=== PATIENT | female | born 1980 | race American Indian/Alaskan Native ===

== ENCOUNTER 2019-03-04 06:33 | Observation (INO) | payer OTHER ==
[2019-03-02 09:59] LABS: Basophils # (Auto) 0.1 K/mm3 (0.0-0.1); Eosinophils # (Auto) 0.2 K/mm3 (0.0-0.4); Eosinophils % (Auto) 2.4 % (0.0-4.3); Hematocrit 38.2 % (30.3-42.9); Hemoglobin 12.5 gm/dl (10.1-14.3); Lymphocytes # (Auto) 2.5 K/mm3 (1.2-5.4); Lymphocytes % (Auto) 32.6 % (13.4-35.0); Mean Corpuscular HGB Conc 33 % (30-34); Mean Corpuscular Volume 86 fl (79-97); Monocytes # (Auto) 0.6 K/mm3 (0.0-0.8); Monocytes % (Auto) 8.5 % (0.0-7.3); Red Blood Count 4.44 M/mm3 (3.65-5.03); Red Cell Distribution Width 13.7 % (13.2-15.2)
--- NOTE | 2019-03-02 10:00 | Anesthesia Consultation ---
Anesthesia Consult and Med Hx Date of service: 03/04/19 - Airway Anesthetic Teeth Evaluation: Good ROM Head & Neck: Adequate Mental/Hyoid Distance: Adequate Mallampati Class: Class II Intubation Access Assessment: Good - Pre-Operative Health Status ASA Pre-Surgery Classification: ASA2 Proposed Anesthetic Plan: General Nerve Block: TAP - Pulmonary Hx Asthma: Yes (INH (RESCUE AND PRN); LAST ATTACK>2 YRS) SOB: Yes (PRN INHALER) - Cardiovascular System Hx Coronary Artery Disease: (high cholesterol) - Central Nervous System Hx Psychiatric Problems: No - Gastrointestinal Hx Gastroesophageal Reflux Disease: Yes (Mild-dietary) - Hematic Hx Anemia: Yes (RESOLVED, TAKES DAILY IRON) - Other Systems Hx Alcohol Use: Yes (SOCIALLY) Hx Substance Use: No Hx Cancer: No
[2019-03-02 10:21] LABS: BUN/Creatinine Ratio 14; Blood Urea Nitrogen 13 mg/dL (7-17); Calcium 9.1 mg/dL (8.4-10.2); Hemolysis Index 6
--- NOTE | 2019-03-03 14:25 | History and Physical Report ---
History of Present Illness Date of examination: 03/01/19 History of present illness: Patient has been reassessed/reevaluated. H&P has been reviewed. No interval changes. This is a 39 years old female who presents with uterine fibroids. She complains of abdominal pain, abdominal pressure, pelvic pain and pelvic press ure, but denies menorrhagia and intermenstrual bleeding. Treatment tried to date includes control pills. Prior to today's visit the patient has had US of pelvis. Her myomas have been increasing in size. Patient's symptoms when present disrupts her normal daily activities Patient desires definitive treatment Vital Signs: Patient Profile: 39 Years Old Female LMP: 02/27/2019 Height: 64 inches (162.56 cm) Weight: 153 pounds BMI: 26.26 Menstrual History: LMP (date): 02/27/2019 On BCP's at conception: yes Current Method of Contraception: OCP Date of Last Pap Smear: 05/29/2017 Past History : 0 Term Births: 0 Premature Births: 0 Living Children: 0 Para: 0 Mult. Births: 0 Prev : 0 Aborta: 0 Elect. Ab: 0 Spont. Ab: 0 Ectopics: 0 COMPUTER NETWORK SPECIALIST History Operations: Cystoscopy with ureteral stents placed Hospitalizations: positive Anesthesia Complications: negative Abnormal PAP: negative Uterine Anomaly: positive fibroids Infection History HIV Risk Eval: no Personal hx. of genital herpes: yes Hx of STD: None Past Medical History: Hyperlipidemia headaches on migraine meds Kidney Stone Past Surgical History: Cystoscopy with ureteral stents placed Family History Summary: Daughter (biol.) - Has Family History of Hyperlipidemia - mother and father - Entered On: 05/16/2015 Daughter (biol.) - Has Family History of Hypertension - mother and father - Entered On: 05/16/2015 General Comments - FH: No Family History of Breast Cancer No Family History of Colon Cancer No Family History of Ovarvian Cancer mother fibroids mother fibromyalgia MGM RA No Family History of DVT/PE on OCP Family History of Hypertension both parents Family History of Coronary Heart Disease mat gf Family History of Hyperlipidemia mother Social History: Patient is single Smoking History: Patient has never smoked. Risk Factors: Smoked Tobacco Use: Never smoker Smokeless Tobacco Use: Never Passive smoke exposure: no Drug use: no HIV high-risk behavior: no Caffeine use: 0 drinks per day Alcohol use: no Exercise: yes Times per week: 3 Type of Exercise: Cardio Seatbelt use: 100 % PAP Smear History: Date of Last PAP Smear: 05/29/2017 Review of Systems General Denies fever, chills, sweats, anorexia, fatigue, weakness, malaise, weight loss and sleep disorder. Complains of pelvic pain. Denies vaginal discharge, incontinence, dysuria, hematuria, urinary frequency, amenorrhea, menorrhagia, abnormal vaginal bleeding, genital sores, decreased libido, painful periods, painful sex, urinary urgency, hot flashes, vaginal dryness, vaginal itching and vaginal odor. CV Denies chest pains, palpitations, syncope, dyspnea on exertion, orthopnea, PND and peripheral edema. Resp Denies cough, dyspnea at rest, excessive sputum, hemoptysis, wheezing and pleurisy. GI Denies nausea, vomiting, diarrhea, constipation, change in bowel habits, abdominal pain, melena, hematochezia, jaundice, gas/bloating, indigestion/heartburn, dysphagia and odynophagia. Breast Denies left breast lump, right breast lump, nipple discharge, bloody discharge from nipple, breast pain, abnormal mammogram and breast enlargement. Psych Denies depression, anxiety, irritability and mood swings. Past History Past Medical History: other (SEE HPI) Past Surgical History: Other (SEE HPI) Social history: full code, other (SEE HPI) Family history: other (SEE HPI) Medications and Allergies Allergies Allergy/AdvReac Type Severity Reaction Status Date / Time caffeine AdvReac Headache Verified 03/01/19 17:35 PEACH FUZZ Allergy Rash Uncoded 03/01/19 17:35 Home Medications Medication Instructions Recorded Confirmed Last Taken Type ALBUTEROL Inhaler (OR & NICU) 2 puff IH QID PRN 01/19/16 03/01/19 2 Months Ago History [Proair] ~11/22/15 Montelukast [Singulair] 10 mg PO QPM 01/19/16 03/01/19 01/21/16 19:00 History Multivitamin Tab [Multiple Vitamin 1 each PO QDAY 01/19/16 03/01/19 01/21/16 08:00 History TAB (Theragran)] Simvastatin 1 tab PO DAILY 01/19/16 03/01/19 01/21/16 19:00 History Bifidobacterium Infantis [Align] 10.5 mg PO DAILY 03/01/19 03/01/19 Unknown History Ferrous Sulfate [Iron 325 MG] 325 mg PO DAILY 03/01/19 03/01/19 Unknown History Fluticasone Furoate [Arnuity 100 mcg IH DAILY 03/01/19 03/01/19 Unknown History Ellipta ORAL INH] Fluticasone [Flonase] 1 spray NS QDAY 03/01/19 03/01/19 Unknown History Noreth-Ethinyl Estradiol/Iron 1 each PO DAILY 03/01/19 03/01/19 Unknown History [Kaitlib Fe Chewable Tablet] Vitamin B Complex [B Complex] 1 each PO DAILY 03/01/19 03/01/19 Unknown History Active Meds: Active Medications Celecoxib (Celebrex) 200 mg PO PREOP NR Stop: 03/04/19 23:01 Fentanyl (Sublimaze) 100 mcg IV ONCE PRN PRN Reason: sedation for nerve block Gabapentin (Gabapentin) 300 mg PO PREOP NR Stop: 03/04/19 23:01 Cefazolin Sodium (Ancef/Sterile Water 2 Gm/20 Ml) 2 gm in 20 mls @ 80 mls/hr IV PREOP NR; Protocol Stop: 03/04/19 23:00 Lactated Ringer's (Lactated Ringers) 1,000 mls @ 100 mls/hr IV DIRECT GREGG Midazolam HCl (Versed) 2 mg IV PREOP NR Stop: 03/04/19 23:01 Review of Systems Constitutional: other (SEE HPI) Exam - Physical Exam Narrative exam: HEENT: normocephalic, no lesions or deformities Skin no ulcers, xanthomas Chest: respiratory effort normal, clear to auscultation CV: regular, normal S1-S2, no murmur, no rub, no gallop Abdomen: soft, non-tender, no masses, bowel sounds normal Neuro: no gross anomalities Extremities: normal alignment, no joint enlargement, crepitus, masses or tenderness; normal tone and strength COMPUTER NETWORK SPECIALIST Exams Vulva/Vagina: normal appearance, no discharge, lesions. No evidence of cystocele or rectocele. Cervix: normal appearance, no lesions, no discharge Uterus: enlarged uterus 14 -16 weeks in size tender Adnexae: no masses or tenderness Rectovaginal: exam defered - Constitutional Vitals: Temp Pulse Resp BP Pulse Ox 97.3 F L 64 18 110/76 100 03/02/19 09:20 03/02/19 09:20 03/02/19 09:20 03/02/19 09:20 03/02/19 09:20 Results - Labs CBC & Chem 7: 03/02/19 09:20 03/02/19 09:20 Assessment and Plan - Patient Problems (1) Intramural leiomyoma of uterus Current Visit: No Status: Acute Plan to address problem: Diagnosis explained to patient . Questions answered. Discussed with patient various medical, surgical and radiological therapies common for treatment including myomectomy hysterectomy and uterine artery embolization Patient's symptoms when present disrupts her normal daily activities Patient desires definitive treatment. She desires myomectomy Patient desires to retain future fertility. She desires myomectomy. Discussed risks and benefits of laparotomy and robotic assisted approaches Patient desires robotic assisted myomectomy Discuss the risks of the surgery including infection, bleeding possibly heavy enough to require a blood transfusion, possible damage to bowel, bladder or ureter. Patient understands that there is a possibility that a hysterectomy maybe indicated for severe bleeding not resoved with conservative measures.Patient advised the small risks of spreading of malignancy if morcellator is used during the surgery patient understands and approve of use if necessary. All her questions were answered. Patient understands and desires to proceed. (2) Hyperlipidemia Current Visit: No Status: Chronic Qualifiers: Hyperlipidemia type: unspecified Qualified Code(s): E78.5 - Hyperlipidemia, unspecified (3) Migraine Current Visit: No Status: Acute Qualifiers: Migraine type: unspecified (4) Nephrolithiasis Current Visit: No Status: Chronic
[~2019-03-04 06:33] MED LIST: CELECOXIB 200 MG CAP PO NR; GABAPENTIN 300 MG CAP PO NR; MIDAZOLAM 2 MG/2 ML INJ IV NR; fentaNYL 100 MCG/2 ML INJ IV PRN
[2019-03-04] MEDS ORDERED: BACTERIOSTATIC SODIUM CHLORIDE 0.9% 30 ML VIAL INFILTRATI ONE (06:52)
[2019-03-04] MEDS ORDERED: FAMOTIDINE 20 MG/2 ML INJ IV ONE (06:57)
--- NOTE | 2019-03-04 06:57 | Anesthesia Day of Surgery ---
Anesthesia Day of Surgery - Day of Surgery Patient Examined: Yes Patient H&P Reviewed: Yes Patient is NPO: Yes
[2019-03-04] MEDS ORDERED: ceFAZolin/Water 2 GM/20 ML 2 GM/20 ML SYRINGE IV NR (07:00)
[2019-03-04] MEDS ORDERED: BUPIVACAINE-EPINEPHRINE/PF 0.25%-1:200,000 (30 ML) VIAL INFILTRATI ONE (07:03)
[2019-03-04] MEDS ORDERED: dexAMETHasone 4 MG/ML VIAL ONE (07:03)
[2019-03-04] MEDS: LACTATED RINGERS 1,000 ML IV SCH ×2 (07:35→16:43)
[2019-03-04] MEDS ORDERED: HYDROmorphone 1 MG/1 ML INJ ONE ×2 (08:18→15:03)
[2019-03-04] MEDS ORDERED: PROPOFOL 200 MG/20 ML VIAL IV ONE (08:18)
[2019-03-04] MEDS ORDERED: LIDOCAINE MPF (2%) 20 MG/1 ML VIAL 5 ML ONE (08:19)
[2019-03-04] MEDS ORDERED: ROCURONIUM 50 MG/5 ML INJ IV ONE ×2 (08:19→11:17)
[2019-03-04] MEDS ORDERED: SODIUM CHLORIDE 0.9% 100 ML ONE (08:20)
[2019-03-04] MEDS ORDERED: VASOPRESSIN 20 UNIT/1 ML INJ ONE (08:20)
[2019-03-04] MEDS ORDERED: CITRIC ACID-SOD CITRATE 500 ML IV ONE (08:45)
[2019-03-04] MEDS ORDERED: dexAMETHasone 20 MG/5 ML VIAL ONE (09:22)
[2019-03-04] MEDS ORDERED: VASOPRESSIN 20 UNIT/1 ML INJ IM ONE (10:00)
[2019-03-04] MEDS ORDERED: SODIUM CHLORIDE 0.9% 50 ML IVPB IV ONE (10:00)
[2019-03-04] MEDS ORDERED: SODIUM CHLORIDE 0.9% IRRIG SOLN 2000 ML IR ONE ×2 (10:04)
[2019-03-04] MEDS ORDERED: CITRIC ACID-SOD CITRATE SOLN 500 ML IV SOLN IV ONE (10:04)
[2019-03-04] MEDS ORDERED: SODIUM CHLORIDE 0.9% IRR 1,500 ML BOTTLE IR ONE (10:04)
[2019-03-04] MEDS ORDERED: LACTATED RINGERS 1,000 ML ONE ×2 (10:31→16:13)
[2019-03-04] MEDS ORDERED: ceFAZolin 1 GM VIAL ONE (13:06)
[2019-03-04] MEDS ORDERED: SODIUM CHLORIDE 0.9% 1000 ML 1,000 ML ONE (14:26)
[2019-03-04] MEDS ORDERED: NEOSTIGMINE 10MG/10 ML INJ MDV ONE (14:30)
[2019-03-04] MEDS ORDERED: ONDANSETRON 4 MG/2 ML INJ ONE (14:30)
[2019-03-04] MEDS ORDERED: GLYCOPYRROLATE 0.4 MG/2 ML INJ ONE (14:30)
--- NOTE | 2019-03-04 14:57 | Operative Report ---
Operative Report Operative Report: Date of procedure: 03/04/2019 Pre-operative diagnosis: Symptomatic large leiomyomata Post-operative diagnosis: Same Procedure name(s): Robotic-assisted myomectomy Surgeon: Neil Hunter MD Flight Hostess: Paloma Gallo, certified surgical technician Anesthesia: Gen. endotracheal EBL: 1000cc patient received 450 mL cell saver replacement Complications: None Findings: Patient with 16 to 18 week fibroid uterus with multiple leiomyomata she had 5 large leiomyomata measuring from 8 to 12 cm in diameter patient with multiple other small myomas measuring name 0.5 centimeter 3 cm in diameter. In total approximately 15 myomas patient with normal tubes and ovaries bilaterally Specimen(s): Myomas Procedure: Patient taken operating room where general endotracheal anesthesia was induced difficulty. She was placed in dorsal lithotomy position prepped and draped in usual normal sterile fashion for robotic procedure. A Warren catheter was placed in urinary bladder without difficulty speculum placed in the vagina. A medium [employer] V care uterine manipulator was placed without any difficulty. Then attention was switched to the patient's abdomen. Supra-umbilical incision was made with a knife. Spread with a hemostat. A 10-12 Trocar was placed in this incision while lifting out anterior abdominal wall under direct visualization. Intra-abdominal cavity was entered without any evidence of internal organ damage. Patient was insufflated approximately 3 and half liters of CO2 gas. Patient's pelvic findings noted above. The patient was perceived to be a candidate for robotic procedure. Three 8 mm trochars were placed for placement of the robotic instruments. One on either side of the midline trocar placement approximately 8 cm from the midline, the third one was placed approximately 2 fingerbreadths above the left iliac crest. The 8 mm robotic trocars was placed under direct visualization with no signs of internal organ damage. An assistant clinical nurse manager ports were placed on the right lower quadrant 2 fingerbreadths above the iliac crest 10-12mm trocar. A Lex Gomez fascial closure device were placed in each of the 10-12 mm trocar site. The patient was then placed in extreme Trendelenburg position. The da Xiao robot was then placed and thought his left side. Once the robotic instruments camera in place, I took my place under the operating console. Pitressin was liberally injected underneath the myomas as described above approximately 2-10 mL of control some depending on the size of the myoma into the myometrium. A midline incision was made in the uterus from anterior to posterior. Majority of the myoma was removed through this incision. Each myoma was removed by incising through the capsule around the myoma. Using both sharp and blunt dissection the surrounding serosa myometrium were dissected from the myoma. The endometrium was entered anterior fundal position. This defect midline incision was closed in layers with care not to compromise endometrial cavity. 0 Vicryl sutures were used with good hemostasis. Serosal incision attempted baseball stitch to decrease the exposure suture. Patient did have some large almost there were serosal O posteriorly and anteriorly there were removed by incising over the serosal make an additional incisions at both. Care was taken to preserve patient's cornua and introitus of the fallopian tubes bilaterally. Patient did have 1 small amount that was right lower uterine segment that was small near location of her uterine vessels from a decision not to remove that myoma. The defects from removing the serosal myomas were closed in layers using 0 Vicryl. All closures were found to be hemostatic. All of the myomas from the cavity was then undertaken. Patient did have small myomas are removed through the assistant clinical nurse manager port intact. The larger myomas were removed using the morcellator. Several myomas were removed in this fashion no evidence of internal organ damage. Also myoma there was spread throughout the cavity with individually removed with graspers through the assistant clinical nurse manager port patient's pelvis was copiously irrigated and suctioned. Patient uterus was found to be hemostatic. Corazon was placed along the suture lines. Interceed was used to cover the suture line attempt to prevent postoperative adhesions. All instruments were then removed. The trocar incisions were closed. The larger incision was closed in layers with 0 Vicryl and 4-0 Monocryl. The small incisions were closed subcutaneously with 4-0 Monocryl. Patient tolerated procedure well. Patient was awakened in the operating room and accompanied to the recovery room in good condition.
[2019-03-04] MEDS: HYDROmorphone 1 MG/1 ML INJ IV PRN ×2 (15:01→15:10)
--- NOTE | 2019-03-04 17:05 | Post Anesthesia Evaluation ---
- Post Anesthesia Evaluation Patient Participated: Yes Airway Patent: Yes Stable Respiratory Function: Yes Nausea/Vomiting: No Temp > 96.8F: Yes Pain Manageable: Yes Adequeate Hydration: Yes Anesthesia Complications: No
[2019-03-04] MEDS ORDERED: D5W/LACTATED RINGERS 1,000 ML IV SCH (17:16)
[2019-03-04] MEDS: KETOROLAC 30 MG/1 ML INJ IV SCH ×2 (17:28→23:11)
--- NOTE | 2019-03-04 18:04 | Event Note ---
Date: 03/04/19 Day of surgery. Discuss operative findings with patient and questions answered. Patient without fever. Will ambulate in halls this evening. Good urine output. We will continue routine postoperative care. Doing well discussed findings with patient and family
[2019-03-04 20:24] LABS: Hematocrit 35.8 % (30.3-42.9); Hemoglobin 11.5 gm/dl (10.1-14.3)
[2019-03-04] MEDS: HYDROcodone/ACETAMINOPHEN 5-325 MG TAB PO PRN (20:25)
[2019-03-04] MEDS: DOCUSATE SODIUM 100 MG CAP PO SCH (21:45)
[2019-03-04] MEDS: ceFAZolin/NS 1 GM/50 ML 1 GM/50 ML BAG IV SCH (22:14)
[2019-03-05] MEDS: KETOROLAC 30 MG/1 ML INJ IV SCH ×2 (05:27→12:11)
[2019-03-05] MEDS: ceFAZolin/NS 1 GM/50 ML 1 GM/50 ML BAG IV SCH (05:29)
[2019-03-05 07:06] LABS: Hematocrit 30.9 % (30.3-42.9); Hemoglobin 10.1 gm/dl (10.1-14.3)
[2019-03-05] MEDS: HYDROcodone/ACETAMINOPHEN 5-325 MG TAB PO PRN ×2 (09:01→20:23)
[2019-03-05] MEDS: DOCUSATE SODIUM 100 MG CAP PO SCH ×2 (09:02→21:46)
--- NOTE | 2019-03-05 09:02 | Progress Note ---
Assessment and Plan - Patient Problems (1) Intramural leiomyoma of uterus Current Visit: No Status: Acute (2) Hyperlipidemia Current Visit: No Status: Chronic Qualifiers: Hyperlipidemia type: unspecified Qualified Code(s): E78.5 - Hyperlipidemia, unspecified (3) Migraine Current Visit: No Status: Acute Qualifiers: Migraine type: unspecified (4) Nephrolithiasis Current Visit: No Status: Chronic (5) History of robot-assisted laparoscopic hysterectomy Current Visit: Yes Status: Acute (6) Status post myomectomy Current Visit: Yes Status: Acute Plan to address problem: Patient was some discomfort we'll more than expected. Symptoms could be compatible with postop ileus. We will reevaluate the patient is afternoon. Patient denies any nausea vomiting at this time. Subjective Date of service: 03/05/19 Patient Reports: Positive: still having pain, tolerating liquids well, voiding w/o difficulty, no flatus, no bowel movement, afebrile, other (patient complaining of shoulder pain). Negative: fever (c/o abdominal pain) Objective Vital Signs - 12hr 03/04/19 03/05/19 23:35 04:20 Temperature 98.9 F 99.0 F Pulse Rate 89 89 Respiratory 19 16 Rate Blood Pressure 135/85 136/63 O2 Sat by Pulse 99 99 Oximetry - General physical appearance well developed, moderate pain - Respiratory normal expansion - Abdomen tender, bowel sounds hypoactive, distended (moderately), wound (healing well), surgical scars (healing well) - Integumentary no rash, no growths, no abnormal pigmentation - Psychiatric oriented to time, oriented to person, oriented to place, speech is normal, memory intact - Labs 03/05/19 05:44 03/02/19 09:20
--- NOTE | 2019-03-05 13:05 | Event Note ---
Date: 03/05/19 Patient states she feels better than this a.m. States the pain has increased but still has some difficulty getting in bed because of the pain. Patient states that showed pain has increased. Patient denies any nausea or vomiting. No flatus at this time. Abdomen is soft for this a.m. but still with some firmness A/P will obtain a CT scan and rule out any evidence of perforation or obstruction
--- NOTE | 2019-03-05 17:58 | Event Note ---
Date: 03/05/[address]
--- NOTE | 2019-03-05 19:03 | Event Note ---
Date: 03/05/19 Spoke with radiologist geothermal operations manager who recommends doing the study right now without contrast for initial evaluation as prepping for the contract would take more time. Will re-order the study without contrast at this time.
--- NOTE | 2019-03-05 22:04 | Cat Scan Report ---
CT ABDOMEN AND PELVIS WITHOUT CONTRAST HISTORY: r/o obstruction or peforation POD #1. COMPARISON: None. TECHNIQUE: CT images of the abdomen and pelvis were obtained without administration of intravenous co ntrast. All CT scans at this location are performed using CT dose reduction for ALARA by means of au tomated exposure control. FINDINGS: Lungs/bones: Mild bibasilar atelectasis. No acute osseous abnormality identified. There is subcutane ous emphysema over the chest wall in this postoperative patient. Abdomen/pelvis: The liver, gallbladder, spleen, pancreas, adrenals, kidneys, and proximal GI tract a ppear unremarkable. Urinary bladder contains a small amount of air but is otherwise unremarkable. There is moderate volum e heterogeneous pelvic free fluid in the reproductive organs are not well seen for limited noncontras t technique. No acute colonic abnormality identified. No acute colonic abnormality identified. There is a small amount of subcutaneous air over the abdominal wall. IMPRESSION: 1. Small volume heterogeneous pelvic free fluid which is not simple. These findings could be seen wit h blood products in this postoperative patient. Correlate with H and H. There is no bowel obstruction or obvious perforation. Subcutaneous emphysema is visualized over the chest wall. CRITICAL RESULT: Time of Discovery (AUTO INSPECTOR/CDT): 8:55 PM Time of Communication (AUTO INSPECTOR/CDT): 8:59 PM Licensed Practitioner Receiving Report: Patient's nurse Sasha Read Back Performed: Yes. Signer Name: Sohail Salinas MD Signed: 03/05/2019 10:00 PM Workstation Name: [id number]
--- NOTE | 2019-03-05 23:05 | Progress Note ---
Assessment and Plan - Patient Problems (1) Intramural leiomyoma of uterus Current Visit: No Status: Acute (2) Hyperlipidemia Current Visit: No Status: Chronic Qualifiers: Hyperlipidemia type: unspecified Qualified Code(s): E78.5 - Hyperlipidemia, unspecified (3) Migraine Current Visit: No Status: Acute Qualifiers: Migraine type: unspecified (4) Nephrolithiasis Current Visit: No Status: Chronic (5) History of robot-assisted laparoscopic hysterectomy Current Visit: Yes Status: Acute (6) Status post myomectomy Current Visit: Yes Status: Acute (7) Postoperative abdominal pain Current Visit: Yes Status: Acute Plan to address problem: CT Scan no evidence of obstruction or perforation. Patient feels much better. Small amount of fluid in abdomen c/w blood. H/H pending. Dominik l watch over night d/c if stable in am (8) Atelectasis Current Visit: Yes Status: Acute (9) Asthma in adult Current Visit: Yes Status: Acute Qualifiers: Asthma severity: mild Subjective Date of service: 03/05/19 Patient Reports: Positive: feels better, pain is less, tolerating a regular diet, voiding w/o difficulty, no flatus, no bowel movement, afebrile, other (c/o coughing up phlegm). Negative: nausea, vomiting Objective Vital Signs - 12hr 03/05/19 03/05/19 03/05/19 12:21 16:12 19:45 Temperature 98.1 F 98.8 F 99.2 F Pulse Rate 103 H 112 H Respiratory 18 18 16 Rate Blood Pressure 134/79 120/77 127/84 O2 Sat by Pulse 97 98 Oximetry - General physical appearance well developed - Respiratory normal expansion - Abdomen soft (much softer than earlier), tender (appropriate post-op), bowel sounds hypoactive, wound (healing well) - Integumentary no rash, no growths, no abnormal pigmentation - Neurologic normal coordination, normal sensation - Labs 03/05/19 05:44 03/02/19 09:20 - Imaging CT scan - abdomen: report reviewed (smal atectasis) CT scan - pelvis: report reviewed
[2019-03-05] MEDS ORDERED: ALBUTEROL 2.5 MG/3 ML NEBU IH PRN (23:11)
[2019-03-05 23:15] LABS: Hematocrit 26.2 % (30.3-42.9); Hemoglobin 8.6 gm/dl (10.1-14.3)
[2019-03-06] MEDS: HYDROcodone/ACETAMINOPHEN 5-325 MG TAB PO PRN ×3 (00:27→15:12)
[2019-03-06] MEDS ORDERED: SODIUM CHLORIDE 0.9% 500 ML 500 ML IV ONE (01:01)
[2019-03-06] MEDS ORDERED: ACETAMINOPHEN 325 MG TAB PO ONE ×2 (01:03→09:00)
[2019-03-06] MEDS ORDERED: diphenhydrAMINE 50 MG CAP PO ONE ×2 (01:04→09:00)
[2019-03-06 07:41] LABS: Hematocrit 26.7 % (30.3-42.9); Hemoglobin 8.9 gm/dl (10.1-14.3)
--- NOTE | 2019-03-06 10:20 | Progress Note ---
Assessment and Plan Patient desires d/c home. Will check BMP and H/H after transfusion completed. Patient's family member was at the bedside while discharge instructions were given. Will consider allowing home after blood work reviewed. Patient voiced under standing and agrees with plan of care - Patient Problems (1) Status post myomectomy Current Visit: Yes Status: Acute Plan to address problem: Stable, no evidence of active bleeding (2) Asthma in adult Current Visit: Yes Status: Chronic Qualifiers: Asthma severity: mild Plan to address problem: Continue home medications (3) Migraine Current Visit: No Status: Chronic Qualifiers: Migraine type: unspecified (4) Hyperlipidemia Current Visit: No Status: Chronic Qualifiers: Hyperlipidemia type: unspecified Qualified Code(s): E78.5 - Hyperlipidemia, unspecified (5) Nephrolithiasis Current Visit: No Status: Chronic (6) Anemia Current Visit: Yes Status: Acute Qualifiers: Other causes of anemia: acute posthemorrhagic Plan to address problem: Due symptoms she's receiving 1uPRBC that was started this am. Subjective Date of service: 03/06/19 Patient Reports: Positive: feels better, tolerating a regular diet, voiding w/o difficulty, afebrile, other (complained of lightheadedness while resting, denies bleeding). Negative: nausea, vomiting Objective Vital Signs - 12hr 03/05/19 03/06/19 03/06/19 23:38 01:15 03:43 Temperature 98.6 F 98.5 F Pulse Rate 101 H 103 H Pulse Rate [ 100 H Anterior Bilateral] Pulse Rate [ 105 H Posterior Bilateral] Respiratory 16 16 Rate Respiratory 18 Rate [Anterior Bilateral] Respiratory 20 Rate [Posterior Bilateral] Blood Pressure 127/77 129/78 O2 Sat by Pulse 99 99 Oximetry 03/06/19 03/06/19 03/06/19 07:37 07:55 08:55 Temperature 98.0 F 98.2 F Pulse Rate 100 H 89 Pulse Rate [ Anterior Bilateral] Pulse Rate [ Posterior Bilateral] Respiratory 18 16 Rate Respiratory Rate [Anterior Bilateral] Respiratory Rate [Posterior Bilateral] Blood Pressure 124/72 124/72 O2 Sat by Pulse 98 98 100 Oximetry 03/06/19 09:05 Temperature Pulse Rate 100 H Pulse Rate [ Anterior Bilateral] Pulse Rate [ Posterior Bilateral] Respiratory Rate Respiratory Rate [Anterior Bilateral] Respiratory Rate [Posterior Bilateral] Blood Pressure 123/77 O2 Sat by Pulse 98 Oximetry - General physical appearance well developed, well nourished, no distress - Respiratory normal expansion, normal respiratory effort, clear to auscultation - Abdomen soft, not tender, bowel sounds normal, not distended, not guarding, surgical scars (c/d/i, no defects, or s/s infection) - Psychiatric oriented to time, oriented to person, oriented to place, speech is normal - Labs 03/06/19 07:32 03/02/19 09:20 - Imaging CT scan - pelvis: report reviewed
[2019-03-06] MEDS: DOCUSATE SODIUM 100 MG CAP PO SCH (13:46)
[2019-03-06 13:51] LABS: Hematocrit 30.8 % (30.3-42.9); Hemoglobin 10.1 gm/dl (10.1-14.3)
[2019-03-06 14:05] LABS: BUN/Creatinine Ratio 8; Blood Urea Nitrogen 6 mg/dL (7-17); Calcium 8.2 mg/dL (8.4-10.2); Hemolysis Index 11
--- NOTE | 2019-03-06 14:51 | Discharge Summary ---
Providers - Providers Date of Admission: 03/04/19 14:40 Date of discharge: 03/06/19 Attending physician: JENNY MCMANUS Hospitalization Condition: Good Procedures: s/p robot assisted laparoscopic myomectomy Hospital course: During her post op course she had a CT to evaluate for bowel perforation or obstruction. Also she received 1uPRBC's d/t tachycardia and lightheadedness. By POD #2 she was stable and desired d/c home Disposition: DC-01 TO HOME OR SELFCARE - Discharge Diagnoses (1) Status post myomectomy Status: Acute (2) Asthma in adult Status: Chronic Qualifiers: Asthma severity: mild (3) Migraine Status: Chronic Qualifiers: Migraine type: unspecified (4) Hyperlipidemia Status: Chronic Qualifiers: Hyperlipidemia type: unspecified Qualified Code(s): E78.5 - Hyperlipidemia, unspecified (5) Nephrolithiasis Status: Chronic (6) Anemia Status: Acute Qualifiers: Other causes of anemia: acute posthemorrhagic Core Measure Documentation - Palliative Care Palliative Care/ Comfort Measures: Not Applicable - Core Measures Any of the following diagnoses?: none Exam - Constitutional Vitals: Temp Pulse Resp BP Pulse Ox 98.3 F 98 H 18 132/88 99 03/06/19 12:19 03/06/19 12:19 03/06/19 12:19 03/06/19 12:19 03/06/19 12:19 Plan Activity: other (No sex, no driving. Ambulate ~1mile on your property a day. Use your incerntive spirometer and void every hour while awake. ) Weight Bearing Status: Full Weight Bearing Diet: regular (Eat small meals frequently. Avoid spicy, fatty, high salt foods. Drink ~66oz of water a day. ) Wound: open to air, keep clean and dry Special Instructions: no heavy lifting (Greater than 25lbs) Care Plan Goals: Complete recovery Call office to schedule post operative appointment Call your doctor immediately for: * Fever > 100.5 * Heavy vaginal bleeding ( >1 pad per hour) * Severe persistent headache * Shortness of breath * Reddened, hot, painful area to leg or breast * Drainage or odor from incision. * Keep incision clean and dry at all times and follow doctor's instructions regarding bathing/showering Plan of Treatment: See discharge instructions Health Concerns: Precautions and prevention of VTE, infection discussed Assessment: stable Follow up with: [place] [facility] [Other] - 7 Days JENNY MCMANUS MD [Staff Physician] - (As scheduled) Forms: [facility] Discharge Summary Prescriptions: Docusate Sodium [Colace] 100 mg PO BID PRN #30 capsule PRN Reason: Constipation Ferrous Sulfate [Feosol 325 MG tab] 325 mg PO DAILY #90 tablet Ibuprofen [Motrin 800 MG tab] 800 mg PO TID PRN #30 tablet PRN Reason: Pain oxyCODONE /ACETAMINOPHEN [Percocet 5/325 mg] 1 - 2 tab PO Q8HR PRN #20 tablet PRN Reason: Pain
[2019-03-06 15:00] VITALS: BP 138/87
== END 2019-03-06 17:16 | disposition home or self-care (01) ==
LOC: OR 06:33 → OB 14:40
PROVIDERS: ADMIT Obstetrics & Gynecology; ATTEND Obstetrics & Gynecology
DX: D25.1 Intramural leiomyoma of uterus (principal); G43.909 Migraine, unspecified, not intractable, without status migrainosus; N20.0 Calculus of kidney; E78.5 Hyperlipidemia, unspecified; Z98.890 Other specified postprocedural states
CPT/HCPCS: 36415; 36430; 58145; 64450; 74176; 80048; 84703; 85014; 85018; 85025; 86850; 86900; 86901; 86920; 88305; 94640; 96365; 96366; 96375; 96376; A4217; C1765; C1782; G0378; J0690; J1100; J1170; J1885; J2250; J2405; J2704; J2710; J3010; J7030; J7040; J7120; J7121; P9016; S2900